=== PATIENT | female | born 1950 | race Caucasian/White ===

== ENCOUNTER 2016-11-02 11:39 | Emergency (ER) | payer BC ==
[2016-11-02 11:46] VITALS: BP 140/80
[2016-11-02] MEDS ORDERED: HYDROCODONE/ACETAMINOPHEN 5-325 MG TABLET PO ONE (11:47)
--- NOTE | 2016-11-02 11:48 | ER Document Report ---
ED Medical Screen (RME) - General Stated Complaint: SCALP JAYNA Time seen by provider: 11:44 Mode of Arrival: Ambulatory Information source: Patient - HPI Patient complains to provider of: PAINFUL RASH TO RIGHT SIDE OF HEAD/FACE Onset: Other - PAIN STARTED FIRST, THEN RASH, NOW CLOSE TO RIGHT EYE Onset/Duration: Sudden Context: STATES VISION OK, BUT EYE FEELS DIFFERENT. Quality of pain: Throbbing Severity: Moderate Pain Level: 4 Associated Symptoms: Headache Exacerbated by: Denies Relieved by: Denies Similar symptoms previously: No Recently seen / treated by doctor: No - Related Data Smoking: Non-smoker Frequency of alcohol use: Rare Drug Abuse: None Pertinent History: HTN ROSACEA HYPOTHRYOID GERD DEPRESSION Allergies/Adverse Reactions: acetaminophen [From Percocet] Allergy (Severe, Verified 11/02/16 11:43) Difficulty breathing aspirin [Aspirin] Allergy (Severe, Verified 11/02/16 11:43) Difficulty breathing latex [Latex] Allergy (Severe, Verified 11/02/16 11:43) difficulty breathing,rash,hives oxycodone HCl [From Percocet] Allergy (Severe, Verified 11/02/16 11:43) Difficulty breathing Sulfa (Sulfonamide Antibiotics) Allergy (Severe, Verified 11/02/16 11:43) rash,itch tomatoes Allergy (Severe, Uncoded 11/02/16 11:43) rash,tongue swells,difficulty breathing Past Medical History - Past Medical History Cardiac Medical History: Reports: Hx Hypertension - contr w/ meds Pulmonary Medical History: Denies: Hx Asthma, Hx Bronchitis, Hx COPD, Hx Pneumonia Neurological Medical History: Reports: Hx Seizures - no meds ? etiology. 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 Denies : Hx Pacemaker
--- NOTE | 2016-11-02 12:41 | ER Document Report ---
ED Skin Rash/Insect Bite/Abscs - General Chief Complaint: Skin Sore(s) Stated Complaint: SCALP JAYNA Mode of Arrival: Ambulatory Notes: Patient has a rash of her right scalp and right face that started Friday. Preceding the rash, she had pain and swelling of the scalp for about 3 or more days. The eruption has spread from just the scalp to the right side of the face. It's very painful and itches. She does not have any evidence of involvement of the right eye at this time. Patient does have rosacea with some facial blemishes. Patient has not had a fever. TRAVEL OUTSIDE OF THE [place] IN LAST 30 DAYS: No - Related Data Allergies/Adverse Reactions: acetaminophen [From Percocet] Allergy (Severe, Verified 11/02/16 11:43) Difficulty breathing aspirin [Aspirin] Allergy (Severe, Verified 11/02/16 11:43) Difficulty breathing latex [Latex] Allergy (Severe, Verified 11/02/16 11:43) difficulty breathing,rash,hives oxycodone HCl [From Percocet] Allergy (Severe, Verified 11/02/16 11:43) Difficulty breathing Sulfa (Sulfonamide Antibiotics) Allergy (Severe, Verified 11/02/16 11:43) rash,itch tomatoes Allergy (Severe, Uncoded 11/02/16 11:43) rash,tongue swells,difficulty breathing Past Medical History - General Information source: Patient - Social History Smoking Status: Unknown if Ever Smoked Cigarette use (# per day): No Chew tobacco use (# tins/day): No Frequency of alcohol use: Rare Drug Abuse: None Family History: Reviewed & Not Pertinent Patient has suicidal ideation: No Patient has homicidal ideation: No - Past Medical History Cardiac Medical History: Reports: Hx Hypercholesterolemia, Hx Hypertension - contr w/ meds Denies: Hx Coronary Artery Disease Pulmonary Medical History: Neurological Medical History: Reports: Hx Seizures - no meds ? etiology Endocrine Medical History: Reports: Hx Hypothyroidism. Denies: Hx Diabetes Mellitus Type 1, Hx Diabetes Mellitus Type 2 GI Medical History: Reports: Hx Gastroesophageal Reflux Disease, Other - Patient says she has a liver dysfunction but doesn't know the name. Says she has a fatty liver. Her list of medical conditions from her primary care providers mentions nonalcoholic steattorhea, cirrhosis. She has no current problems related to those conditions. 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 Denies : Hx Pacemaker Review of Systems - Review of Systems Notes: REVIEW OF SYSTEMS: CONSTITUTIONAL : Denies fever. EENT: Denies eye, ear, nose or mouth or throat pain or other symptoms. CARDIOVASCULAR: Denies chest pain. RESPIRATORY: Denies cough, chest congestion, or shortness of breath. GASTROINTESTINAL: Denies abdominal pain or nausea, vomiting, or diarrhea. GENITOURINARY: Denies difficulty or painful urinating, urinary frequency, blood in urine. MUSCULOSKELETAL: Denies back or neck pain. Denies joint pain or swelling. SKIN: See history of present illness. Erythematous eruption of the scalp of the right side of her head and also isolated lesions of the right forehead and face. NEUROLOGICAL: Denies LOC or altered mental status. Denies headache. Denies sensory loss or motor deficits. PSYCHIATRIC: Denies anxiety or stress. Reports history of depression. ALL OTHER SYSTEMS REVIEWED AND NEGATIVE. Physical Exam - Vital signs Vitals: Temp Pulse Resp BP Pulse Ox 97.4 F 65 16 140/80 H 97 11/02/16 11:45 11/02/16 11:45 11/02/16 11:45 11/02/16 11:45 11/02/16 11:45 Interpretation: Normal. No: Febrile - Notes Notes: PHYSICAL EXAMINATION: GENERAL: Well-appearing, in no acute distress. Vital signs are normal. Afebrile. HEAD: Right scalp erythematous and edematous with rash consistent with herpes zoster. She also has several lesions of the right side of the face which are on erythematous base and may be central blisters. She does have one lesion of the right medial eyebrow which is erythematous and swollen, but that does not appear to be involving the eyeball as the conjunctivae is not injected and there is no drainage from the eye and there is no apparent pain with her eye movement or blinking. EYES: Pupils equal round and reactive to light, extraocular movements intact. ENT: oropharynx clear without exudates. Moist mucous membranes. NECK: Normal range of motion, supple. LUNGS: Breath sounds clear and equal bilaterally. HEART: Regular rate and rhythm without murmurs. ABDOMEN: Soft, nontender. No guarding or rebound. BACK: No tenderness throughout entire back. NEUROLOGICAL: Normal speech, normal gait. Normal sensory, motor, and reflex exams. Awake, alert, and oriented x3. Cranial nerves normal. No facial asymmetry and no apparent involvement of the motor function of the facial nerve. Can open and close both eyes normally. Can wrinkle forehead. Can smile without facial drooping. PSYCH: Normal mood, normal affect. SKIN: Rash of right scalp and right face, described above. Course - Vital Signs Vital signs: Temp Pulse Resp BP Pulse Ox 97.4 F 65 16 140/80 H 97 11/02/16 11:45 11/02/16 11:45 11/02/16 11:45 11/02/16 11:45 11/02/16 11:45 Discharge - Discharge Clinical Impression: Herpes zoster dermatitis Shingles rash Qualifiers: Herpes zoster complications: without complications Qualified Code(s): B02.9 - Zoster without complications Condition: Stable Disposition: HOME, SELF-CARE Additional Instructions: Shingles You have shingles. Shingles is caused by the chicken pox virus, The virus has been surviving dormant in a nerve cell since you had chicken pox years ago. The virus has spread down a nerve root to reach the skin. Typically, an band-like area of pain and skin sensitivity develops, then small blisters erupt in the area. Shingles lasts two or three weeks, but sometimes leaves persistent pain. You are contagious -- you can give children chicken pox. But you can't give anyone shingles. Antiviral medicines (such as acyclovir or famciclovir) can help, but the rash usually worsens for about a week. Pain medication is often given if the area hurts. Antihistamines such as Benadryl may be necessary for itching if it does not respond to soda baths and calamine lotion. Sometimes cortisone medicine or nerve-block shots are necessary if pain is severe. If the area remains severely painful as the sores heal, or if you suspect an infection developing in the sores, see your doctor. Acyclovir Acyclovir (Zovirax) is used to treat infections caused by the Herpes family of viruses. It's available as capsules or ointment. Zovirax is most effective if started at the first sign of the viral outbreak. It can decrease the severity and duration of symptoms. However, it doesn't eliminate the virus from the body completely. If you're prone to repeated outbreaks of herpes, you'll continue to have attacks. Apply ointment with a disposable glove or finger-cot to avoid spreading the virus with your finger. If pills have been prescribed, take them for the full recommended course. Occasionally, mild nausea or headaches may occur. Call the doctor if you develop wheezing, itching, rash, shortness of breath , or lightheadedness. Oral Narcotic Medication You have been given a prescription for pain control. This medication is a narcotic. It's best taken with food, as nausea can result if taken on an empty stomach. Don't operate machinery or drive within six hours of taking this medication. Do not combine this medicine with alcohol, or with any medication which can cause sedation (such as cold tablets or sleeping pills) unless you get permission from the physician. Narcotics tend to cause constipation. If possible, drink plenty of fluids and eat a diet high in fiber and fruits. You may bathe and wash the area of involvement of your scalp and face with gentle soap and water daily. Try to avoid touching the areas so that you don't get them secondarily infected with a bacteria. At this time, there does not appear to be any involvement of your eye, but if you do develop redness or pain of the eyeball, return for us to reevaluate. FOLLOW-UP CARE: If you have been referred to a physician for follow-up care, call the physician s office for an appointment as you were instructed or within the next two days. If you experience worsening or a significant change in your symptoms, notify the physician immediately or return to the Emergency Department at any time for re-evaluation. Prescriptions: Hydrocodone/Acetaminophen [[place] 5-325 mg Tablet] 1 - 2 tab PO Q6HP PRN #15 tablet PRN Reason: Acyclovir 800 mg PO Q4H #35 tablet
== END 2016-11-02 12:51 | disposition home or self-care (01) ==
LOC: ER 11:39
DX: B02.9 Zoster without complications (principal); L71.9 Rosacea, unspecified; I10 Essential (primary) hypertension; Z88.6 Allergy status to analgesic agent; Z88.5 Allergy status to narcotic agent; Z88.2 Allergy status to sulfonamides; Z91.040 Latex allergy status; Z91.018 Allergy to other foods
CPT/HCPCS: 99283

== ENCOUNTER 2019-09-30 11:09 | Emergency (ER) | payer MEDICARE, BC ==
--- NOTE | 2019-09-30 11:27 | ER Document Report ---
ED Medical Screen (RME) - General Chief Complaint: High Blood Pressure Stated Complaint: BLOOD PRESSURE ISSUES Time Seen by Provider: 09/30/19 11:22 Primary Care Provider: DEENA SANDHU MD [Primary Care Provider] - Follow up as needed TRAVEL OUTSIDE OF THE [place] IN LAST 30 DAYS: No - HPI Notes: 09/30/19 11:25 Patient is a 69-year-old female with a history of hypertension who presents complaining of having an intermittent mild headache across her frontal area for the past week, and noticing that her blood pressure was high. Her family doctor sent her here for evaluation. She otherwise is able to eat and drink without difficulty. She is urinating normally. This is not the worst headache of her life and not start as a thunderclap. Denies any fever, head injury, neck pain, changes in vision/speech/mentation/hearing, URI, sore throat, chest pain, palpitations, syncope, cough, shortness of breath, wheeze, dyspnea, abdominal pain, nausea/vomiting/diarrhea, urinary retention, dysuria, hematuria, loss of control of bowel or bladder, numbness/tingling, saddle anesthesia, muscle paralysis/weakness, or rash. I have treated and performed a rapid initial assessment of this patient. A comprehensive ED assessment and evaluation of the patient, analysis of test results and completion of medical decision making process will be conducted by additional ED providers. PHYSICAL EXAMINATION: GENERAL: Well-appearing, well-nourished and in no acute distress. A&Ox4. Answers questions appropriately. Neuro: Cranial nerves grossly intact. NIH 0. GCS 15. Heart: RRR Ext: no edema Lungs: CTAB - Related Data Allergies/Adverse Reactions: acetaminophen [From Percocet] Allergy (Severe, Verified 09/30/19 11:24) Difficulty breathing aspirin [Aspirin] Allergy (Severe, Verified 09/30/19 11:24) Difficulty breathing latex [Latex] Allergy (Severe, Verified 09/30/19 11:24) difficulty breathing,rash,hives oxycodone HCl [From Percocet] Allergy (Severe, Verified 09/30/19 11:24) Difficulty breathing Sulfa (Sulfonamide Antibiotics) Allergy (Severe, Verified 09/30/19 11:24) rash,itch tomatoes Allergy (Severe, Uncoded 09/30/19 11:24) rash,tongue swells,difficulty breathing Past Medical History - Past Medical History Cardiac Medical History: Reports: Hx Hypercholesterolemia, Hx Hypertension - contr w/ meds Denies: Hx Coronary Artery Disease Pulmonary Medical History: Denies: Hx Asthma, Hx Bronchitis, Hx COPD, Hx Pneumonia Neurological Medical History: Reports: Hx Seizures - no meds ? etiology. Denies: Hx Cerebrovascular Accident Endocrine Medical History: Reports: Hx Hypothyroidism. 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 Denies: Hx Pacemaker Doctor's Discharge - Discharge Referrals: DEENA SANDHU MD [Primary Care Provider] - Follow up as needed
[2019-09-30] MEDS ORDERED: LABETALOL HCL INJ 20 MG/4 ML DISP.SYRIN IV ONE ×2 (11:28→20:15)
[2019-09-30 12:31] LABS: APPEARANCE,URINE CLEAR; BILIRUBIN,URINE NEGATIVE (NEGATIVE); COLOR,URINE YELLOW; GLUCOSE, URINE NEGATIVE (NEGATIVE); KETONES,URINE NEGATIVE (NEGATIVE); PROTEIN,URINE NEGATIVE (NEGATIVE); URINE SPECIFIC GRAVITY 1.013; UROBILINOGEN,URINE NEGATIVE mg/dL (<2.0)
[2019-09-30] MEDS ORDERED: ACETAMINOPHEN 325 MG TABLET PO ONE (12:54)
--- NOTE | 2019-09-30 12:56 | ER Document Report ---
ED Blood Pressure Problem - General Chief Complaint: Blood Pressure Problem Stated Complaint: BLOOD PRESSURE ISSUES Time Seen by Provider: 09/30/19 11:22 Primary Care Provider: DEENA SANDHU MD [Primary Care Provider] - Follow up tomorrow Information source: Patient Notes: Patient presents complaining of headache pain with elevated blood pressure reading today. Patient states that she has had elevated blood pressure over the past 2 weeks after her doctor took her off of her spironolactone. Patient states that her doctor said that she had a kidney problem and so they discontinued this medication. Patient denies any nausea or vomiting. Patient states that she has had some exertional shortness of breath for the past month. Patient denies any cough cold symptoms or chest pain. Patient also reports a cat scratch to the left hip that has had some redness and a little bit of d rainage. Patient states cats immunizations are up-to-date. Patient reports her tetanus immunization is currently up-to-date. Patient denies taking any anticoagulants. Patient states that she is the executor of in a state and that has caused a lot of stress and is uncertain if her headache may be due to her increased stress. TRAVEL OUTSIDE OF THE [place] IN LAST 30 DAYS: No - HPI Onset/Duration: Waxing and waning Quality of pain: Achy Pain Level: 3 Associated symptoms: Headache. denies: Chest pain, Nausea, Vomiting Similar symptoms previously: No Recently seen / treated by doctor: No - Related Data Allergies/Adverse Reactions: aspirin [Aspirin] Allergy (Severe, Verified 09/30/19 11:24) Difficulty breathing latex [Latex] Allergy (Severe, Verified 09/30/19 11:24) difficulty breathing,rash,hives oxycodone HCl [From Percocet] Allergy (Severe, Verified 09/30/19 11:24) Difficulty breathing Sulfa (Sulfonamide Antibiotics) Allergy (Severe, Verified 09/30/19 11:24) rash,itch IV Contrast Allergy (Severe, Uncoded 09/30/19 16:31) Difficulty breathing tomatoes Allergy (Severe, Uncoded 09/30/19 11:24) rash,tongue swells,difficulty breathing Past Medical History - General Information source: Patient - Social History Smoking Status: Never Smoker Chew tobacco use (# tins/day): No Frequency of alcohol use: None Drug Abuse: None Lives with: Spouse/Significant other Family History: Reviewed & Not Pertinent Patient has suicidal ideation: No Patient has homicidal ideation: No - Past Medical History Cardiac Medical History: Reports: Hx Hypercholesterolemia, Hx Hypertension - contr w/ meds Denies: Hx Coronary Artery Disease Pulmonary Medical History: Neurological Medical History: Reports: Hx Seizures - no meds ? etiology. 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 Denies: Hx Pacemaker Review of Systems - Review of Systems Constitutional: No symptoms reported. denies: Fever EENT: No symptoms reported Cardiovascular: No symptoms reported. denies: Chest pain Respiratory: Short of breath - With exertion. denies: Cough Gastrointestinal: No symptoms reported. denies: Abdominal pain, Nausea, Vomiting Genitourinary: No symptoms reported Female Genitourinary: No symptoms reported Musculoskeletal: No symptoms reported. denies: Back pain, Neck pain Skin: Other - Redness around a cat scratch to the left lateral side Hematologic/Lymphatic: No symptoms reported Neurological/Psychological: Headaches. denies: Confusion, Weakness Physical Exam - Vital signs Vitals: Temp Pulse Resp BP Pulse Ox 97.6 F 87 16 224/107 H 96 09/30/19 11:16 09/30/19 11:16 09/30/19 11:16 09/30/19 11:16 09/30/19 11:16 - General General appearance: Appears well, Alert In distress: None - HEENT Head: Normocephalic, Atraumatic Eyes: Normal Conjunctiva: Normal Ears: Normal External canal: Normal Nasal: Normal Mouth/Lips: Normal Mucous membranes: Normal Neck: Normal, Supple. No: Lymphadenopathy - Respiratory Respiratory status: No respiratory distress Chest status: Nontender Breath sounds: Normal. No: Nonproductive cough, Rales, Rhonchi, Stridor, Wheezing Chest palpation: Normal - Cardiovascular Rhythm: Regular Heart sounds: S1 appreciated, S2 appreciated Murmur: No - Abdominal Inspection: Obese Distension: No distension Tenderness: Nontender - Back Back: Normal, Nontender. No: CVA tenderness - Extremities General upper extremity: Normal inspection, Normal strength General lower extremity: Edema - 1+, Normal strength - Neurological Neuro grossly intact: Yes Cognition: Normal [place] Coma Scale Eye Opening: Spontaneous [place] Coma Scale Verbal: Oriented [place] Coma Scale Motor: Obeys Commands [place] Coma Scale Total: 15 - Psychological Associated symptoms: Normal affect, Normal mood - Skin Skin Temperature: Warm Skin Moisture: Dry Skin Color: Normal Course - Re-evaluation Re-evalutation: 09/30/19 14:[address] Fraga regarding pt presentation and diagnostic evaluation. Dr Fraga advises adding on ABG as well as d-dimer to further evaluate patient's hypoxia. 09/30/19 16:33 Patient updated regarding plan of care. Patient states that she cannot have contrast dye as it caused her to have difficulty breathing. CTA order canceled, VQ study ordered. 09/30/19 20:46 Results of VQ scan reviewed, no concern for PE at this time. Patient complains of headache pain starting to return this time. Medications ordered. Patient's blood pressure had appeared to be elevated although the blood pressure cuff was not appropriately placed on her arm. After repositioning the blood pressure cuff her readings were improved. Patient's blood gas reviewed, no concern for hypoxia. Patient road tested in ER and oxygen saturation remained above 91%. Patient encouraged to follow-up with her primary doctor as she may need outpatient stress testing to further evaluate her exertional shortness of breath symptoms. Consulted with Dr. Rutledge regarding patient diagnostic evaluation, agrees with discharge plan of care at this time. Discussed with patient discharge plan of care. Patient is agreeable at this time. Discussed worsening signs or symptoms that patient should return immediately for. - Vital Signs Vital signs: Temp Pulse Resp BP Pulse Ox 97.6 F 94 16 166/98 H 95 09/30/19 21:13 09/30/19 21:13 09/30/19 21:13 09/30/19 21:13 09/30/19 21:13 - Laboratory Result Diagrams: 09/30/19 12:29 09/30/19 12:29 Laboratory results interpreted by me: 09/30/19 09/30/19 09/30/19 12:29 12:29 12:29 D-Dimer 1.46 H ABG HCO3 ABG Total CO2 Est GFR ( Amer) 59 L Est GFR (MDRD) Non-Af 49 L Alkaline Phosphatase 177 H NT-Pro-B Natriuret Pep 404 H Total Protein 8.6 H 09/30/19 15:15 D-Dimer ABG HCO3 24.6 H ABG Total CO2 25.7 H Est GFR ( Amer) Est GFR (MDRD) Non-Af Alkaline Phosphatase NT-Pro-B Natriuret Pep Total Protein Labs- Entire Visit 09/30/19 09/30/19 09/30/19 12:10 12:29 12:29 WBC 8.2 RBC 3.98 Hgb 13.2 Hct 37.3 MCV 94 MCH 33.1 MCHC 35.3 RDW 12.5 Plt Count 228 Lymph % (Auto) 27.6 [place] % (Auto) 7.2 Eos % (Auto) 3.1 Baso % (Auto) 0.4 Absolute Neuts (auto) 5.0 Absolute Lymphs (auto) 2.3 Absolute Monos (auto) 0.6 Absolute Eos (auto) 0.3 Absolute Basos (auto) 0.0 Seg Neutrophils % 61.7 D-Dimer Carbonic Acid HCO3/H2CO3 Ratio ABG pH ABG pCO2 ABG pO2 ABG HCO3 ABG Total CO2 ABG O2 Saturation ABG Base Excess FiO2 Sodium 141.6 Potassium 3.9 Chloride 103 Carbon Dioxide 26 Anion Gap 13 BUN 19 Creatinine 1.12 Est GFR ( Amer) 59 L Est GFR (MDRD) Non-Af 49 L Glucose 107 Calcium 9.4 Magnesium 1.9 Total Bilirubin 0.5 Direct Bilirubin 0.4 Neonat Total Bilirubin Not Reportable Neonat Direct Bilirubin Not Reportable Neonat Indirect Bili Not Reportable AST 31 ALT 21 Alkaline Phosphatase 177 H Troponin I NT-Pro-B Natriuret Pep Total Protein 8.6 H Albumin 4.3 TSH Urine Color YELLOW Urine Appearance CLEAR Urine pH 6.0 Ur Specific [place] 1.013 Urine Protein NEGATIVE Urine Glucose (UA) NEGATIVE Urine Ketones NEGATIVE Urine Blood NEGATIVE Urine Nitrite (Reflex) NEGATIVE Urine Bilirubin NEGATIVE Urine Urobilinogen NEGATIVE Leukocyte Esterase Rfl NEGATIVE Urine RBC (Auto) 0 Urine Bacteria (Auto) TRACE Urine WBC (Reflex) 1 Squamous Epi Cells Auto <1 Urine Mucus (Auto) RARE Urine Ascorbic Acid NEGATIVE 09/30/19 09/30/19 09/30/19 12:29 12:29 12:29 WBC RBC Hgb Hct MCV MCH MCHC RDW Plt Count Lymph % (Auto) [place] % (Auto) Eos % (Auto) Baso % (Auto) Absolute Neuts (auto) Absolute Lymphs (auto) Absolute Monos (auto) Absolute Eos (auto) Absolute Basos (auto) Seg Neutrophils % D-Dimer 1.46 H Carbonic Acid HCO3/H2CO3 Ratio ABG pH ABG pCO2 ABG pO2 ABG HCO3 ABG Total CO2 ABG O2 Saturation ABG Base Excess FiO2 Sodium Potassium Chloride Carbon Dioxide Anion Gap BUN Creatinine Est GFR ( Amer) Est GFR (MDRD) Non-Af Glucose Calcium Magnesium Total Bilirubin Direct Bilirubin Neonat Total Bilirubin Neonat Direct Bilirubin Neonat Indirect Bili AST ALT Alkaline Phosphatase Troponin I < 0.012 NT-Pro-B Natriuret Pep 404 H Total Protein Albumin TSH 1.60 Urine Color Urine Appearance Urine pH Ur Specific [place] Urine Protein Urine Glucose (UA) Urine Ketones Urine Blood Urine Nitrite (Reflex) Urine Bilirubin Urine Urobilinogen Leukocyte Esterase Rfl Urine RBC (Auto) Urine Bacteria (Auto) Urine WBC (Reflex) Squamous Epi Cells Auto Urine Mucus (Auto) Urine Ascorbic Acid 09/30/19 15:15 WBC RBC Hgb Hct MCV MCH MCHC RDW Plt Count Lymph % (Auto) [place] % (Auto) Eos % (Auto) Baso % (Auto) Absolute Neuts (auto) Absolute Lymphs (auto) Absolute Monos (auto) Absolute Eos (auto) Absolute Basos (auto) Seg Neutrophils % D-Dimer Carbonic Acid 1.14 HCO3/H2CO3 Ratio 21:1 ABG pH 7.43 ABG pCO2 37.8 ABG pO2 98.1 ABG HCO3 24.6 H ABG Total CO2 25.7 H ABG O2 Saturation 97.6 ABG Base Excess 0.5 FiO2 ROOM AIR Sodium Potassium Chloride Carbon Dioxide Anion Gap BUN Creatinine Est GFR ( Amer) Est GFR (MDRD) Non-Af Glucose Calcium Magnesium Total Bilirubin Direct Bilirubin Neonat Total Bilirubin Neonat Direct Bilirubin Neonat Indirect Bili AST ALT Alkaline Phosphatase Troponin I NT-Pro-B Natriuret Pep Total Protein Albumin TSH Urine Color Urine Appearance Urine pH Ur Specific [place] Urine Protein Urine Glucose (UA) Urine Ketones Urine Blood Urine Nitrite (Reflex) Urine Bilirubin Urine Urobilinogen Leukocyte Esterase Rfl Urine RBC (Auto) Urine Bacteria (Auto) Urine WBC (Reflex) Squamous Epi Cells Auto Urine Mucus (Auto) Urine Ascorbic Acid - Diagnostic Test Radiology reviewed: Reports reviewed Discharge - Discharge Clinical Impression: Exertional dyspnea, Elevated blood pressure reading, Cat scratch Headache Qualifiers: Headache type: unspecified Headache chronicity pattern: unspecified pattern Int ractability: not intractable Qualified Code(s): R51 - Headache Condition: Stable Disposition: HOME, SELF-CARE Instructions: Headache ([facility]), High Blood Pressure ([facility]) Additional Instructions: Return immediately for any new or worsening symptoms Followup with your primary care provider, call tomorrow to make a followup appointment You may need to have a stress test on outpatient basis, your primary doctor can order this for you. Record your blood pressure daily and keep a log to present to your doctor. Prescriptions: Amox Tr/Potassium Clavulanate [Augmentin 875-125 Tablet] 1 tab PO BID 10 Days tablet Butalb/Acetaminophen/Caffeine [Fioricet (50-325-40 mg) Tablet] 1 tab PO Q4H PRN #12 each PRN Reason: Referrals: DEENA SANDHU MD [Primary Care Provider] - Follow up tomorrow
[2019-09-30 12:57] LABS: ABSOLUTE EOSINOPHILS # (AUTO) 0.3 10^3/uL (0.0-0.6); ABSOLUTE LYMPHOCYTES (AUTO) 2.3 10^3/uL (0.5-4.7); ABSOLUTE MONOCYTES (AUTO) 0.6 10^3/uL (0.1-1.4); BASOPHILS % (AUTO) 0.4 % (0-2); EOSINOPHILS % (AUTO) 3.1 % (0-6); HEMATOCRIT 37.3 % (36.0-47.0); HEMOGLOBIN 13.2 g/dL (12.0-15.5); LYMPHOCYTES % (AUTO) 27.6 % (13-45); MEAN CORPUSCULAR HEMOGLOBIN 33.1 pg (27.0-33.4); MEAN CORPUSCULAR HGB CONC 35.3 g/dL (32.0-36.0); MEAN CORPUSCULAR VOLUME 94 fl (80-97); MONOCYTES % (AUTO) 7.2 % (3-13); PLATELET COUNT 228 10^3/uL (150-450); RED BLOOD COUNT 3.98 10^6/uL (3.72-5.28); RED CELL DISTRIBUTION WIDTH 12.5 % (11.5-14.0); SEGMENTED NEUTROPHILS % (AUTO) 61.7 % (42-78); TOTAL CELLS COUNTED % (AUTO) 100 %; WHITE BLOOD COUNT 8.2 10^3/uL (4.0-10.5)
[2019-09-30 13:05] LABS: ALBUMIN 4.3 g/dL (3.5-5.0); ALKALINE PHOSPHATASE 177 U/L (38-126); ANION GAP 13 (5-19); ASPARTATE AMINO TRANSFERASE 31 U/L (14-36); BILIRUBIN,DIRECT 0.4 mg/dL (0.0-0.4); BILIRUBIN,TOTAL 0.5 mg/dL (0.2-1.3); BLOOD UREA NITROGEN 19 mg/dL (7-20); CALCIUM 9.4 mg/dL (8.4-10.2); CARBON DIOXIDE 26 mmol/L (22-30); CHLORIDE 103 mmol/L (98-107); GLUCOSE 107 mg/dL (75-110); POTASSIUM 3.9 mmol/L (3.6-5.0); TOTAL PROTEIN 8.6 g/dL (6.3-8.2)
[2019-09-30 13:22] LABS: NT PRO BNP 404 pg/mL (<125)
[2019-09-30 13:24] LABS: TROPONIN I < 0.012 ng/mL
--- NOTE | 2019-09-30 13:31 | RADIOLOGY REPORT (SQ) ---
EXAM DESCRIPTION: CT HEAD WITHOUT COMPLETED DATE/TIME: 09/30/2019 1:07 pm REASON FOR STUDY: SINGH, HTN COMPARISON: None. TECHNIQUE: Axial images acquired through the brain without intravenous contrast. Images reviewed wi th bone, brain and subdural windows. Additional sagittal and coronal reconstructions were generated. Images stored on PACS. All CT scanners at this facility use dose modulation, iterative reconstruction, and/or weight based d osing when appropriate to reduce radiation dose to as low as reasonably achievable (ALARA). [facility]: Dose Right [facility]: CareDose [facility]: Dose Right [facility]: Teradose 4D [facility]: BioSTL RADIATION DOSE: CT Rad equipment meets quality standard of care and radiation dose reduction techniq ues were employed. CTDIvol: 53.2 mGy. DLP: 1017 mGy-cm. mGy. LIMITATIONS: None. FINDINGS: VENTRICLES: Normal size and contour. CEREBRUM: No masses. No hemorrhage. No midline shift. No evidence for acute infarction. Normal gra y/white matter differentiation. No areas of low density in the white matter. CEREBELLUM: No masses. No hemorrhage. No alteration of density. No evidence for acute infarction. EXTRAAXIAL SPACES: No fluid collections. No masses. ORBITS AND GLOBE: No intra- or extraconal masses. Normal contour of globe without masses. CALVARIUM: No fracture. PARANASAL SINUSES: No fluid or mucosal thickening. SOFT TISSUES: No mass or hematoma. OTHER: No other significant finding. IMPRESSION: NORMAL BRAIN CT WITHOUT CONTRAST. EVIDENCE OF ACUTE STROKE: NO. COMMENT: Quality ID # [id number]: Final reports with documentation of one or more dose reduction techniques (e.g., Automated exposure control, adjustment of the mA and/or kV according to patient size, use of iterative reconstruction technique) TECHNICAL DOCUMENTATION: JOB ID: [id number] [employer]- All Rights Reserved Reading location - IP/workstation name: [email or web address]
--- NOTE | 2019-09-30 13:57 | RADIOLOGY REPORT (SQ) ---
EXAM DESCRIPTION: CHEST 2 VIEWS COMPLETED DATE/TIME: 09/30/2019 1:11 pm REASON FOR STUDY: sob COMPARISON: None. EXAM PARAMETERS: NUMBER OF VIEWS: two views TECHNIQUE: Digital Frontal and Lateral radiographic views of the chest acquired. RADIATION DOSE: NA LIMITATIONS: none FINDINGS: LUNGS AND PLEURA: No opacities, masses or pneumothorax. No pleural effusion. MEDIASTINUM AND HILAR STRUCTURES: No masses or contour abnormalities. HEART AND VASCULAR STRUCTURES: Heart normal size. No evidence for failure. BONES: No acute findings. HARDWARE: None in the chest. OTHER: No other significant finding. IMPRESSION: NO ACUTE RADIOGRAPHIC FINDING IN THE CHEST. TECHNICAL DOCUMENTATION: JOB ID: [id number] [employer]- All Rights Reserved Reading location - IP/workstation name: [email or web address]
[2019-09-30] MEDS ORDERED: DEXAMETHASONE SOD PHOS INJ 10 MG/1 ML VIAL IV ONE (15:21)
[2019-09-30 15:35] LABS: ARTERIAL BLOOD BASE EXCESS 0.5 mmol/L; ARTERIAL BLOOD H2CO3 1.14 mmol/L (1.05-1.35); ARTERIAL BLOOD HCO3 24.6 mmol/L (20-24); ARTERIAL BLOOD O2 SATURATION 97.6 % (94-98); ARTERIAL BLOOD PCO2 37.8 mmHg (35-45); ARTERIAL BLOOD PH 7.43 (7.35-7.45); ARTERIAL BLOOD PO2 98.1 mmHg (80-100); ARTERIAL BLOOD TOTAL CO2 25.7 mmol/L (21-25)
[2019-09-30 15:38] LABS: ARTERIAL BLOOD FIO2 ROOM AIR
--- NOTE | 2019-09-30 19:25 | RADIOLOGY REPORT (SQ) ---
EXAM DESCRIPTION: NM LUNG VENT/PERF SCAN COMPLETED DATE/TIME: 09/30/2019 7:12 pm REASON FOR STUDY: dyspnea on exertion, elevated d dimer COMPARISON: Earlier chest radiograph RADIONUCLIDE AND DOSE: 5.39 millicuries TC-99m MAA Intravenous 32.7 millicuries TC-99m DTPA Inhaled aerosol TECHNIQUE: Eight views of the lungs acquired post ventilation of DTPA aerosol. Eight matching views of the lungs acquired following injection of MAA. LIMITATIONS: None. FINDINGS: VENTILATION: Symmetric and homogeneous distribution of DTPA aerosol during ventilatory pha se. No significant areas of photopenia. PERFUSION: Perfusion images with normal homogenous activity and no wedge-shaped or segmental defects. No ventilation-perfusion mismatches. OTHER: No other significant finding. IMPRESSION: No ventilation-perfusion mismatches. TECHNICAL DOCUMENTATION: JOB ID: [id number] [place]-72 2010 [employer]- All Rights Reserved Reading location - IP/workstation name: [employer]
--- NOTE | 2019-09-30 19:26 | EKG REPORT ---
SEVERITY:- ABNORMAL ECG - SINUS RHYTHM LEFT VENTRICULAR HYPERTROPHY PROBABLE INFERIOR INFARCT, OLD : Confirmed by: Xavi Davalos MD 30-Sep-2019 19:25:19
[2019-09-30] MEDS ORDERED: BUTALB/ACETAMINOPHEN/CAFFEINE 1 TAB EACH PO ONE (20:45)
[2019-09-30] MEDS ORDERED: AMOXICILLIN TR/POT CLAVULANATE 500-125 MG TAB PO ONE (21:00)
[2019-09-30 21:15] VITALS: BP 166/98
== END 2019-09-30 21:13 | disposition home or self-care (01) ==
LOC: ER 11:09
DX: I10 Essential (primary) hypertension (principal); R51 Headache; S70.212A Abrasion, left hip, initial encounter; W55.03XA Scratched by cat, initial encounter; R60.0 Localized edema; R06.02 Shortness of breath; Z88.8 Allergy status to other drugs, medicaments and biological substances; Z91.040 Latex allergy status; Z88.6 Allergy status to analgesic agent; Z88.5 Allergy status to narcotic agent; Z88.2 Allergy status to sulfonamides; Z91.018 Allergy to other foods
CPT/HCPCS: 93005; 99284; 96374; 96375; 36415; 82803; 83735; 84443; 85025; 80053; 81001; 84484; 85379; 83880; 71046; 78582; 70450; 93010; A9540; A9567; A9270 ×3; J3490; J1100; Q9969